=== PATIENT | female | born 2000 | race Two or more races ===

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

== ENCOUNTER 2025-03-12 08:11 | Emergency (ER) | payer BC ==
[~2025-03-12] VITALS: Ht 162.6 cm; Wt 90.7 kg
[2025-03-12 08:30] VITALS: TEMP 97.9
[2025-03-12 09:18] LABS: BASOPHILS # (AUTO) 0.1 K/uL (0.0-0.2); BASOPHILS % (AUTO) 0.4 % (0.0-2.0); EOSINOPHILS # (AUTO) 0.1 K/uL (0.0-0.7); EOSINOPHILS % (AUTO) 0.6 % (0.0-6.0); HEMATOCRIT 39 % (33-45); HEMOGLOBIN 13.1 g/dL (11.5-14.8); LYMPHOCYTES # (AUTO) 3.7 K/uL (0.8-4.8); LYMPHOCYTES % (AUTO) 22.6 % (20.0-44.0); MEAN CORPUSCULAR HEMOGLOBIN 29 PG (26.0-33.0); MEAN CORPUSCULAR HGB CONC 33 g/dl (31.0-36.0); MEAN CORPUSCULAR VOLUME 88 fL (82-100); MONOCYTES # (AUTO) 0.9 K/uL (0.1-1.30); MONOCYTES % (AUTO) 5.3 % (2.0-12.0); NEUTROPHILS # (AUTO) 11.6 K/uL (1.8-8.9); NEUTROPHILS % (AUTO) 71.1 % (43.0-81.0); PLATELET COUNT (AUTO) 247 K/uL (150-450); RED BLOOD CELL COUNT(AUTO) 4.45 MIL/uL (4.0-5.2); RED CELL DISTRIBUTION WIDTH 13.5 % (11.5-15.0); WHITE BLOOD COUNT (AUTO) 16.4 K/uL (4.3-11.0)
[2025-03-12 09:25] LABS: CALCIUM, SERUM 8.6 mg/dL (8.5-10.1); CREATININE 0.8 mg/dL (0.6-1.3); POTASSIUM 3.9 mmol/L (3.5-5.1)
[2025-03-12] MEDS ORDERED: ONDANSETRON HCL/PF 4 MG/2 ML VIAL ONE (09:49)
[2025-03-12] MEDS ORDERED: MORPHINE SULFATE INJ 4 MG/ML DISP.SYRIN ONE (09:49)
[2025-03-12] MEDS: ONDANSETRON HCL/PF - ER 4 MG/2 ML VIAL IV ONE (10:00)
[2025-03-12] MEDS: MORPHINE SULFATE INJ 2 MG/ML DISP.SYRIN IV ONE (10:00)
[2025-03-12 10:23] LABS: PREGNANCY TEST URINE QUAL NEGATIVE (NEGATIVE)
[2025-03-12] MEDS ORDERED: IOHEXOL-350 100 ML VIAL IV ONE (10:34)
[2025-03-12] MEDS ORDERED: CT SWABBABLE VALVE TRANS SET 1 EA INFUS.SET MC ONE (10:34)
[2025-03-12] MEDS ORDERED: IV NS 0.9% 250 ML IV ONE (10:35)
[2025-03-12] MEDS ORDERED: LIDOCAINE 1% INJ 50 ML MDV IJ ONE (11:10)
[2025-03-12] MEDS ORDERED: IBUP-1490 PO (12:57)
[2025-03-12] MEDS ORDERED: HYDR-3972 PO (12:57)
[2025-03-12] MEDS ORDERED: TDAP [DIPH/PERTUSSIS/TET] 0.5 ML VIAL IM ONE (12:58)
[2025-03-12] MEDS: TDAP [DIPH/PERTUSSIS/TET] 0.5 ML VIAL IM ONE (13:04)
[2025-03-12 13:53] VITALS: BP 128/70; O2SAT 96
== END 2025-03-12 13:53 | disposition home or self-care (01) ==
LOC: ER 08:11
DX: S52.591A Other fractures of lower end of right radius, initial encounter for closed fracture (principal); S52.691A Other fracture of lower end of right ulna, initial encounter for closed fracture; S10.93XA Contusion of unspecified part of neck, initial encounter; R51.9 Headache, unspecified; R42 Dizziness and giddiness; V43.52XA Car driver injured in collision with other type car in traffic accident, initial encounter; Y93.89 Activity, other specified; Y92.488 Other paved roadways as the place of occurrence of the external cause; Y99.8 Other external cause status
CPT/HCPCS: 25605; 99285; 90471; 90715; 71045; 73090; 73130; 70450; 73110 ×2; 70498; 85025; 80048; 84703; 36415; 96374; 96375; J3490; J2270; J2405 ×2; J7050; Q9967